=== PATIENT | female | born 1990 | race Caucasian/White ===

== ENCOUNTER → 2022-04-26 09:30 | Outpatient (CLI) | payer OTHER, SELFPAY ==
[2022-04-26 10:33] LABS: Add Manual Diff / Slide Review NO; Basophils Absolute Auto 0 /uL (0-100); Basophils Percent Auto 0.4 % (0-2); Eosinophils Absolute Auto 100 /uL (0-450); Eosinophils Percent Auto 1.1 % (2-4); Hematocrit 41.3 % (36-46); Hemoglobin 14.3 g/dL (12.0-16.0); Lymphocytes Absolute Auto 2500 /uL (1100-4500); Lymphocytes Percent Auto 36.7 % (25-40); Mean Corpuscular HGB Conc 34.6 % (30-36); Mean Corpuscular Hemoglobin 29.5 PG (26-34); Mean Corpuscular Volume 85.3 fL (80-100); Monocytes Absolute Auto 500 /uL (0-900); Monocytes Percent Auto 6.8 % (3-14); Neutrophils Absolute Auto 3700 /uL (1500-7000); Platelet Count 320 X10^3/uL (150-400); Red Blood Cell Count 4.84 X10^6/uL (4.0-5.2); Red Cell Distribution Width 12.7 % (11.6-14.8); White Blood Cell Count 6.8 X10^3/uL (4.5-11.0)
[2022-04-26 10:55] LABS: Appearance Urine UA CLEAR; Bilirubin Urine UA NEGATIVE (NEGATIVE); Color Urine UA YELLOW; Glucose Urine UA NEGATIVE (Negative); Ketones Urine UA NEGATIVE (NEGATIVE); Leukocyte Esterase Urine UA NEGATIVE (NEGATIVE); Nitrite Urine UA NEGATIVE (Negative); Occult Blood Urine UA NEGATIVE (Negative); Protein Urine UA NEGATIVE (Negative); Urobilinogen Urine UA 0.2 E.U./dL (0.2)
[2022-04-27 01:34] LABS: HCG Quantitative /Beta subunit 1588.3 mIU/mL
[2022-04-27 07:25] LABS: RPR Screen Non Reactive (Non Reactive)
[2022-04-28 06:18] LABS: Varicella IgG Antibody <135 index (Immune >165)
[2022-04-29 16:17] LABS: Hepatitis B Surface Antigen NEGATIVE s/c (NEGATIVE); Rubella Antibody IgG 54.2 IU/mL (>15)
[2022-04-29 16:33] LABS: HIV 1 & 2 Ab/Ag 4th Gen Combo NEGATIVE (NEGATIVE); Hep C Virus Ab w/Reflex Quant NEGATIVE s/c (NEGATIVE)
== END ==
PROVIDERS: Referring Provider Obstetrics & Gynecology; Visit Provider Obstetrics & Gynecology
DX: Z34.01 Encounter for supervision of normal first pregnancy, first trimester (principal)
CPT/HCPCS: 36415; 80055; 81003; 84702; 86787; 86803; 86850; 86900; 86901; 87086; 87389

== ENCOUNTER → 2022-05-28 13:59 | Outpatient (CLI) | payer OTHER, SELFPAY ==
--- NOTE | 2022-05-28 14:00 | DI.US.S_ITS ---
PROCEDURE: US OB <= 14 WEEKS FETUS INDICATIONS: DATES OUTSIDE/PRIOR DATING DATA: Last menstrual period (LMP): March 23, 2022. LMP-based estimated date of delivery (JANET): December 28, 2022. First dating scan (date and location): May 28, 2022, [facility]. Estimated date of delivery (JANET) from first dating scan: December 27, 2022. TECHNIQUE: Real-time scanning was performed of the fetus and maternal pelvic organs, with image documentation. Endovaginal scanning was also performed to better visualize the fetus and maternal ovaries. COMPARISON: None. FINDINGS: Embryo: There is a single live intrauterine gestation with a crown-rump length of 2.7 cm for a gestational age of 9 weeks, 4 days. Heart rate: 160 BPM Maternal organs: Ovaries have a normal appearance. There is a right corpus luteal cyst. IMPRESSION: Single live intrauterine gestation with a gestational age of 9 weeks 4 days by crown-rump length. We strive to produce accurate, complete, and clear reports of imaging services. To assist us in improving patient care, this report was composed using standard report templates and voice recognition software. Therefore, it may contain abnormal punctuation, insertions and/or omissions. Occasional wrong-word or sound-alike substitutions may occur. Though we review the report and make efforts to correct it, we do recommend that the report be read carefully in proper context to recognize any text inaccuracies. Dictated by: Sonia Meredith M.D. on 05/28/2022 at 16:15 Approved by: Sonia Meredith M.D. on 05/28/2022 at 16:16
== END ==
PROVIDERS: Referring Provider Obstetrics & Gynecology; Visit Provider Obstetrics & Gynecology
DX: Z34.01 Encounter for supervision of normal first pregnancy, first trimester (principal); Z3A.09 9 weeks gestation of pregnancy
CPT/HCPCS: 76801; 76817

== ENCOUNTER → 2022-06-12 16:54 | Outpatient (CLI) | payer OTHER, SELFPAY ==
[2022-06-12 23:22] LABS: Urine N gonorrhoeae NOT DETECTED
[2022-06-12 23:31] LABS: Urine Chlamydia NOT DETECTED
== END ==
PROVIDERS: Referring Provider Obstetrics & Gynecology; Visit Provider Obstetrics & Gynecology
DX: Z34.01 Encounter for supervision of normal first pregnancy, first trimester (principal); Z3A.11 11 weeks gestation of pregnancy
CPT/HCPCS: 87491; 87591

== ENCOUNTER → 2022-07-12 15:18 | Outpatient (CLI) | payer OTHER, SELFPAY ==
[2022-07-18 20:45] LABS: AFP Value 41.1 ng/mL (.); Gest Age on Col Date 15.9 weeks (.); Insulin Dep Diabetes No (.); OSBR Risk 1IN 4529 (.); Results Report (.); Test Results *Screen Negative* (.)
== END ==
PROVIDERS: Referring Provider Obstetrics & Gynecology; Visit Provider Obstetrics & Gynecology
DX: Z34.01 Encounter for supervision of normal first pregnancy, first trimester (principal); Z3A.15 15 weeks gestation of pregnancy
CPT/HCPCS: 36415; 82105

== ENCOUNTER → 2022-08-12 14:00 | Outpatient (CLI) | payer OTHER, SELFPAY ==
--- NOTE | 2022-08-12 14:02 | DI.US.S_ITS ---
PROCEDURE: US OB >= 14 WEEKS FETUS INDICATIONS: ANATOMY OUTSIDE/PRIOR DATING DATA: Last menstrual period (LMP): 03/23/2022. LMP-based estimated date of delivery (JANET): 12/28/2022. First dating scan (date and location): 05/28/2022. Estimated date of delivery (JANET) from first dating scan: 12/27/2022 The calculations are made using the JANET of 12/27/2022 TECHNIQUE: Real-time scanning was performed of the fetus, with image documentation and biometric measurements. Endovaginal scanning: Not performed COMPARISON: None. FINDINGS: General: A single living intrauterine gestation is present. Presentation: Vertex. Placenta: Placental position is anterior , without previa. Amniotic fluid index: 17.7 cm, normal range is 5-24 cm. Single deepest vertical pocket is 0.9 cm. heart rate: 152 beats per minute. Maternal cervical canal: 3.9 cm long. biometrics: Biparietal diameter: 5.1 cm Head circumference: 18 cm Abdominal circumference: 15 cm Femur length: 3.5 cm Composite gestational age from present scan: 20 weeks 6 days Estimated weight and percentile: 382 g, 69th percentile IMPRESSION: Single living intrauterine gestation with normal OSMEL and normal estimated weight. Size consistent with dates. Dictated by: Damien Luther M.D. on 08/13/2022 at 10:05 Approved by: Damien Luther M.D. on 08/13/2022 at 10:11
== END ==
PROVIDERS: Referring Provider Obstetrics & Gynecology; Visit Provider Obstetrics & Gynecology
DX: Z34.02 Encounter for supervision of normal first pregnancy, second trimester (principal); Z3A.20 20 weeks gestation of pregnancy
CPT/HCPCS: 76811

== ENCOUNTER → 2022-09-26 11:40 | Outpatient (CLI) | payer OTHER, SELFPAY ==
[2022-09-26 13:21] LABS: Hematocrit 33.6 % (36-46); Hemoglobin 11.6 g/dL (12.0-16.0)
[2022-09-26 13:32] LABS: GTT (PREG) 1 Hour PP 50gm Dose 142 mg/dL (76-139)
== END ==
PROVIDERS: Referring Provider Obstetrics & Gynecology; Visit Provider Obstetrics & Gynecology
DX: Z34.02 Encounter for supervision of normal first pregnancy, second trimester (principal); Z3A.26 26 weeks gestation of pregnancy
CPT/HCPCS: 36415; 82950; 85014; 85018

== ENCOUNTER → 2022-10-07 07:40 | Outpatient (CLI) | payer OTHER, SELFPAY ==
[2022-10-07 09:53] LABS: Glucose Fasting Gestational 87 mg/dL (76-95)
[2022-10-07 10:12] LABS: Glucose 1 Hour Gest 156 mg/dL (76-180)
[2022-10-07 11:07] LABS: Glucose Tol Interp,Gestational INTERPRETATION
[2022-10-07 11:21] LABS: Glucose 2 Hour Gest 166 mg/dL (76-155)
[2022-10-07 12:35] LABS: Glucose 3 Hour Gest 132 mg/dL (76-140)
== END ==
PROVIDERS: Referring Provider Obstetrics & Gynecology; Visit Provider Obstetrics & Gynecology
DX: O99.810 Abnormal glucose complicating pregnancy (principal)
CPT/HCPCS: 36415; 82951; 82952

== ENCOUNTER 2022-10-18 15:17 | Outpatient (CLI) | payer OTHER, SELFPAY ==
--- NOTE | 2022-11-11 14:50 | PM.OBTRLD ---
Visit Information Visit Information Date of evaluation: 10/21/22 Primary OB Provider: Bethel Chambers On-call OB Provider: Kaley Kaba Reason for Evaluation: Yes non-stress test non-stress test reason: decreased movement PFSH Medical History GERD (gastroesophageal reflux disease) Surgical History Anesthesia History of esophagogastroduodenoscopy (EGD) History of tonsillectomy (~2004) Family History Father Hypertension Hyperlipidemia Mother Hyperlipidemia Hypertension Grandfather Diabetes mellitus History of heart disease Hyperlipidemia Hypertension Grandmother Hypertension Mental health problem Alzheimer's dementia Grandfather Diabetes mellitus Hypertension Hyperlipidemia Stroke Grandmother Hypertension Stroke Social History marital status: number of children: 0 household members: spouse lives independently: Yes housing: house pets and animals: Yes education level: other occupational status: employed current occupational exposures/hazards: Yes (aware of all terratogens and taking proper precautions) special cary needs: No travel history: over 6 months ago seatbelt use: always water heater temp set < 120 deg: Yes working smoke detector in home: Yes fire extinguisher in home: Yes carbon monox detector in home: Yes firearms in home: Yes firearms unloaded and locked: Yes do you feel safe at home: Yes Smoking Status: Never smoker second hand exposure: No alcohol intake: former substance use type: does not use during the past year weight has: remained stable well-balanced diet: daily or most days daily servings fruits/ve-4 caffeine: Yes Type(s) of exercise: aerobic and bicycling frequency: 3-4 times per week duration: 30-45 minutes/day Evaluation Evaluation Baseline heart rate: 140 Variability: Moderate (11-25) monitor accelerations: Present Monitor Decelerations: Variable Contraction Frequency (minutes): 0 Category of Tracing: Appropriate for gestational age Diagnosis, Plan/Disposition Plan/Disposition Plan: Assessment: 32-year-old 1 para 0 at 30 weeks gestation Decreased movement Nonstress test appropriate for gestational age Plan: kick counts discuss Follow-up as scheduled with Dr. Chambers OB Disposition: home
== END 2022-10-18 16:24 | disposition home or self-care (01) ==
LOC: LABOR 16:24 → OB 10-24 16:09
PROVIDERS: PCP Physician Assistant Medical; Referring Provider Obstetrics & Gynecology; Visit Provider Obstetrics & Gynecology
DX: O36.8130 Decreased fetal movements, third trimester, not applicable or unspecified (principal); Z3A.30 30 weeks gestation of pregnancy
CPT/HCPCS: 59025; G0378; G0379

== ENCOUNTER → 2022-12-10 11:59 | Outpatient (CLI) | payer OTHER, SELFPAY ==
[2022-12-10 13:25] LABS: Strep Grp B PCR NEG for Grp B Strep
== END ==
PROVIDERS: PCP Physician Assistant Medical; Visit Provider Obstetrics & Gynecology
DX: Z34.03 Encounter for supervision of normal first pregnancy, third trimester (principal); Z3A.37 37 weeks gestation of pregnancy
CPT/HCPCS: 87186; 87653

== ENCOUNTER 2022-12-10 12:00 | Inpatient (IN) | payer OTHER, SELFPAY ==
--- NOTE | 2022-12-10 12:06 | P.HPOB_ITS ---
OB HPI Date/Time Date of admission: 12/10/22 Date Patient Seen: 12/10/22 Time Patient Seen: 12:07 History of Present Condition Chief complaint: IUP, 37+3 wks EGA, SROM 0930 12/10/2022 Narrative: Zenobia Vera is a 32 year old female [facility] Medical History GERD (gastroesophageal reflux disease) Surgical History Anesthesia History of esophagogastroduodenoscopy (EGD) History of tonsillectomy (~2004) Family History Father Hypertension Hyperlipidemia Mother Hyperlipidemia Hypertension Grandfather Diabetes mellitus History of heart disease Hyperlipidemia Hypertension Grandmother Hypertension Mental health problem Alzheimer's dementia Grandfather Diabetes mellitus Hypertension Hyperlipidemia Stroke Grandmother Hypertension Stroke Social History marital status: number of children: 0 household members: spouse lives independently: Yes housing: house pets and animals: Yes education level: other occupational status: employed current occupational exposures/hazards: Yes (aware of all terratogens and taking proper precautions) special cary needs: No travel history: over 6 months ago seatbelt use: always water heater temp set < 120 deg: Yes working smoke detector in home: Yes fire extinguisher in home: Yes carbon monox detector in home: Yes firearms in home: Yes firearms unloaded and locked: Yes do you feel safe at home: Yes Smoking Status: Never smoker second hand exposure: No alcohol intake: former substance use type: does not use during the past year weight has: remained stable well-balanced diet: daily or most days daily servings fruits/ve-4 caffeine: Yes Type(s) of exercise: aerobic and bicycling frequency: 3-4 times per week duration: 30-45 minutes/day Meds Home Medications and Allergies Home Medications Medication Instructions Recorded Confirmed Type famotidine 20 mg tablet (Pepcid) 20 mg PO BID 06/06/22 12/10/22 History prenat.vits,olamide,iaw-[id number]-ovfwp 1 tab PO DAILY 06/06/22 12/10/22 History Allergies Allergy/AdvReac Type Severity Reaction Status Date / Time Bactrim Allergy Intermediate Hives Uncoded 12/10/22 11:30 OB Exam Vital signs Blood Pressure: 138/82 Pulse Rate: 77 Temperature: 98.2 F HENMT Head: normal to inspection, normocephalic and atraumatic Eyes General: appearance normal, both eyes and all related structures Resp Effort & Inspection: normal respiratory effort and able to speak in complete sentences Auscultation: clear to auscultation bilaterally Cardio Rate: regular rate Rhythm: regular rhythm Heart Sounds: S1 normal, S2 normal and no murmurs Extremities Lower extremity: Yes normal to inspection GI Inspection: normal to inspection Palpation: Yes soft and Yes no hepatosplenomegaly Uterus Location (Fundal Height): 38 Presentation: vertex Estimated Weight (lbs): 8 Objective Labs 12/10/22 13:25 Assessment and Plan Assessment and Plan Assessment and Plan narrative: ASSESSMENT 1. Intrauterine , 37+3 wks EGA 2. SROM 3. GBS status unknown PLAN 1. Admit for delivery 2. See orders
[2022-12-10 13:00] VITALS: BP 138/82
[2022-12-10] MEDS: PENICILLIN G POTASSIUM 5,000,000 UNIT in DEXTROSE 5% IN WATER 250 ML 250 UNIT IV (13:23)
[2022-12-10] MEDS: LACTATED RINGERS 1,000 ML 100 ML IV ×2 (13:24→15:16)
[2022-12-10 13:52] LABS: Add Manual Diff / Slide Review NO; Basophils Absolute Auto 0 /uL (0-100); Basophils Percent Auto 0.4 % (0-2); Eosinophils Absolute Auto 100 /uL (0-450); Eosinophils Percent Auto 0.5 % (2-4); Hematocrit 40.5 % (36-46); Hemoglobin 14.1 g/dL (12.0-16.0); Lymphocytes Absolute Auto 3100 /uL (1100-4500); Lymphocytes Percent Auto 25.2 % (25-40); Mean Corpuscular HGB Conc 34.7 % (30-36); Mean Corpuscular Hemoglobin 29.9 PG (26-34); Mean Corpuscular Volume 86.1 fL (80-100); Monocytes Absolute Auto 900 /uL (0-900); Monocytes Percent Auto 6.9 % (3-14); Neutrophils Absolute Auto 8300 /uL (1500-7000); Platelet Count 199 X10^3/uL (150-400); Red Cell Distribution Width 13.3 % (11.6-14.8); White Blood Cell Count 12.4 X10^3/uL (4.5-11.0)
[2022-12-10] MEDS: FENT 2MCG/ML BUPIV 0.125% EPI 200 MCG/100 ML PLAST..BAG 8 MCG EPIDURAL ×2 (15:19→22:31)
--- NOTE | 2022-12-10 15:54 | PM.OBPNLAB ---
Date/Time Date Patient Seen: 12/10/22 Time Patient Seen: 15:54 Pain Control Pain control: tolerating well and epidural Pelvic Exam Dilation (cm): 4 Effacement (%): 90 station: -1 Amniotic membrane status: Ruptured Contractions Contractions on admission: irregular Monitor mode: External Contraction pattern: Regular Contraction phase: Resting Status Heart Rate Baseline: 140 Monitor Accelerations: Present Monitor Decelerations: Prolonged (Isolated 5 minute deceleration down to 60's recovered w/ position changes) Monitor Variability: Moderate Assessment and Plan Assessment: active labor Plan: continuous present management Comments: FSE applied. FHR now returned to original baseline, category 1.
[2022-12-10 18:51] VITALS: BP 138/82; PULSE 77; TEMP 36.8
--- NOTE | 2022-12-10 18:57 | PM.OBPNLAB ---
Date/Time Date Patient Seen: 12/10/22 Time Patient Seen: 18:57 Pain Control Pain control: tolerating well and epidural Pelvic Exam Dilation (cm): 6 Effacement (%): 100 station: 0 Amniotic membrane status: Ruptured Contractions Contractions on admission: none Monitor mode: External Contraction pattern: Regular Contraction phase: Resting Contraction intensity: Moderate Status status: Category l Heart Rate Baseline: 155 Monitor Accelerations: Present Monitor Decelerations: Absent Monitor Variability: Moderate Assessment and Plan Assessment: active labor Plan: continuous present management Comments: Anticipate .
--- NOTE | 2022-12-11 00:55 | P.PCNOB_ITS ---
Labor & Delivery Delivery date: 12/11/22 Intrapartal Events: None Cervical ripening method: none Induction method: none Delivery monitor: external FHT and external uterine Route of delivery: Episiotomy description: None L&D Laceration Description: Periurethral - 1st Degree, Perineal - 1st Degree and Labial (Bilateral first degree) Delivery repair: chromic Estimated blood loss (mL): 150 Anesthesia Type: Epidural Complications: None Narrative: Following a brief 2nd stage, the patient delivered spontaneously over an intact perineum a viable female infant. No shoulder dystocia was encountered and there was no cord entanglement. Skin to skin contact was initiated immediately following delivery and delayed cord clamping performed. Once the umbilical cord was doubly clamping cut, a specimen of cord blood was obtained for routine studies. Placenta was easily delivered with gentle cord traction and suprapubic countertraction. Placenta was inspected, found to be intact, and a central cord insertion was noted with 3 vessels in the umbilical cord. IV Pitocin was initiated immediately following delivery of the placenta and bleeding was easily controlled. Inspection of perineum showed super ficial first-degree abrasions in the periurethral and labial area and a first- degree midline perineal laceration which required closure with 2-0 chromic in running interlocking stitches. Hemostasis was easily achieved and both mother and baby tolerated the delivery process well. [place] Baby 1: Infant gender: Female Presentation: vertex Position: Right Occiput Anterior Placenta delivery description: Spontaneous Cord Vessel Description: 3 Vessels score (1 min): 9 score (5 min): 9 weight: 6 lb 8.975 oz Plan for aftercare: Routine care
[2022-12-11] MEDS: IBUPROFEN 600 MG TABLET PO ×3 (03:31→18:15)
[2022-12-11 05:57] LABS: Add Manual Diff / Slide Review NO; Basophils Absolute Auto 100 /uL (0-100); Basophils Percent Auto 0.4 % (0-2); Eosinophils Absolute Auto 0 /uL (0-450); Eosinophils Percent Auto 0.1 % (2-4); Hematocrit 34.1 % (36-46); Hemoglobin 11.7 g/dL (12.0-16.0); Lymphocytes Absolute Auto 2000 /uL (1100-4500); Mean Corpuscular HGB Conc 34.2 % (30-36); Mean Corpuscular Volume 87.7 fL (80-100); Monocytes Absolute Auto 1400 /uL (0-900); Monocytes Percent Auto 7.7 % (3-14); Neutrophils Absolute Auto 14900 /uL (1500-7000); Neutrophils Percent Auto 80.8 % (50-75); Platelet Count 164 X10^3/uL (150-400); Red Blood Cell Count 3.89 X10^6/uL (4.0-5.2); Red Cell Distribution Width 13.7 % (11.6-14.8); White Blood Cell Count 18.5 X10^3/uL (4.5-11.0)
[2022-12-11] MEDS: OXYCODONE IR 5 MG TABLET PO ×3 (09:50→18:14)
[2022-12-11] MEDS: LANOLIN OINT 7 GM 1 APPLIC TOP (13:14)
[2022-12-11] MEDS: DERMOPLAST SPRAY 20% 60 ML 1 SPRAY TOP (13:14)
[2022-12-11] MEDS: ACETAMINOPHEN 325 MG TABLET 650 MG PO (18:16)
[2022-12-12] MEDS: ACETAMINOPHEN 325 MG TABLET 650 MG PO ×2 (00:09→08:59)
[2022-12-12] MEDS: OXYCODONE IR 5 MG TABLET PO ×2 (00:09→08:59)
[2022-12-12] MEDS: IBUPROFEN 600 MG TABLET PO ×2 (00:10→09:00)
--- NOTE | 2022-12-12 08:13 | P.DS_ITS ---
Discharge Providers Provider Date of admission: 12/10/22 12:00 Discharge Date: 12/12/22 Primary care physician: Teja Marti PA-C Consults: 12/10/22 13:03 Consult to Anesthesiology Urgent Comment: Consulting Provider: Bethel Chambers Reason for consultation: SHANIQUE placement in labor Has provider been notified: No 12/12/22 00:53 Consult to Medical Records Field Technician Routine Comment: Discharge provider: Bethel Chambers MD Summary Hospital Course Date Patient Seen: 12/12/22 Time Patient Seen: 08:13 Diagnoses: IUP, 37+4 wks EGA, delivered via spontaneous vaginal GBS positive status Hospital Course: Zenobia presented with spontaneous rupture more membranes on the morning of 12/10/2022 and early on the morning 12/11/2022 delivered spontaneously a viable female Apgars of 9/9 and a weight of 2976 g (6 lb 9 oz). Both mo ther and baby have done well following delivery with the mother experiencing some low back and perineal discomfort. She has had prompt return of bowel and bladder function, she is ambulating independently, tolerating regular diet, and her pain is reasonably well controlled with oral pain medications. She will be discharged at this time to home after counseling regarding precautionary symptoms, limitations activity, medications, plans for follow-up which will be in 6 weeks. Medications at the time of discharge will include continuation of vitamins and Pepcid, oxycodone 5 mg p.o. q.6 hours, dispense 10 tabs, and ibuprofen 600 mg p.o. q.6 hours as needed pain, dispensed 30 tabs, with 2 refills. Peripartum Data Infant Delivery Method: Natural Vaginal Laceration Description: Perineal - 1st Degree and Labial (First-degree, bilateral) Episiotomy description: None Procedures: Continuous lumbar epidural placement Spontaneous vaginal complications: none [place] 1: Gender: Female Disposition of : home Status at Discharge Cognitive/behavioral status at discharge: oriented Overall status at discharge: patient is progressing back to baseline Time Spent with Patient Time attestation: Total time spent providing and/or coordinating discharge services: Objective Labs 12/11/22 05:35 Exam Const General: cooperative and comfortable Nutritional Appearance: average body habitus Orientation: alert and oriented x3 HENMT Head: normal to inspection, atraumatic and abrasion Ears: hearing grossly normal bilaterally Face and sinus: face symmetric Eyes General: appearance normal, both eyes and all related structures Conjunctivae: conjunctivae normal Sclera: sclerae normal EOM: EOM intact bilaterally Neck Neck: normal visual inspection Resp Effort & Inspection: normal respiratory effort and able to speak in complete sentences GI Inspection: normal to inspection Palpation: soft, no hepatosplenomegaly and mass (Firm, minimally tender fundus, U -5) External Female Exam: other (No significant bleeding noted) Extrem General: no calf tenderness Psych Appearance: grossly normal Mental Status: mental status grossly normal Speech and Movement: speech and movement normal Mood: congruent mood Affect: normal affect Attitude: cooperative Thought Process: normal Thought Content: normal Judgment: judgment good Discharge Plan Discharge Plan Patient Disposition: Home Provider Discharge Comment: Please review the written instructions you received when you were discharged from the hospital. Your follow-up visit will be sche duled for 6 weeks after delivery and I look forward to seeing you then. If in the meanwhile however you have concerns, problems, or questions, please contact either through the office phone at [phone], or via the patient portal. Discharge orders & Medications Prescriptions: New ibuprofen 600 mg Tablet 600 mg PO Q6HR PRN (Reason: Pain, Mild (1-3)) Qty: 30 2RF oxycodone 5 mg Tablet 5 mg PO Q6H PRN (Reason: Pain, Moderate (4-6)) Qty: 10 0RF Continued prenat.vits,olamide,owa-rolk-duioa Tablet 1 tab PO DAILY famotidine [Pepcid] 20 mg tablet 20 mg PO BID Follow up/Referrals: Teja Marti PA-C [Primary Care Provider] - Bethel Chambers MD [Physician] - Discharge Health Status Multidrug resistant organism: No MDRO Diet/Activity/Treatments Diet: Diet as Tolerated Activity: As tolerated Other treatments: Wucf-hir-mhgeepd Tylenol may also be used for additional pain relief. Afek-nml-znnatzm stool softeners and/or MiraLax may be used for constipation. Skin/Wound/Dressing Care Report to your healthcare provider any signs of infection, such as:: chills, fever, increased pain, unusual drainage and unusual redness Dressing: N/A Visit Report/Discharge Packet Instructions: DI for Labor and Delivery, Vaginal , DI for and Nipple Soreness, DI for Prescription Opioid Use Stand Alone Forms: Discharge: Care Discharge Data Primary Care Provider: Teja Marti
[2022-12-12 08:50] VITALS: BP 140/85; PULSE 82; RESP 18; TEMP 36.6
[2022-12-12] MEDS: DOCUSATE 100 MG CAPSULE PO (09:00)
== END 2022-12-12 09:50 | disposition home or self-care (01) | DRG 807 ==
PROVIDERS: Admitting Provider Obstetrics & Gynecology; PCP Physician Assistant Medical; Referring Provider Obstetrics & Gynecology; Visit Provider Obstetrics & Gynecology
DX: O42.02 Full-term premature rupture of membranes, onset of labor within 24 hours of rupture (principal); Z37.0 Single live birth; O70.0 First degree perineal laceration during delivery; Z3A.37 37 weeks gestation of pregnancy; O76 Abnormality in fetal heart rate and rhythm complicating labor and delivery; Z34.03 Encounter for supervision of normal first pregnancy, third trimester
CPT/HCPCS: 36415; 59050; 59400; 85025; 86850; 86900; 86901; 87186; 87653; G0379; J2540

== ENCOUNTER → 2023-08-25 16:37 | Outpatient (CLI) | payer OTHER, SELFPAY ==
--- NOTE | 2023-08-25 16:38 | DI.US.S_ITS ---
P 2 ROCEDURE: US OB <= 14 WEEKS FETUS INDICATIONS: Dating and viability OUTSIDE/PRIOR DATING DATA: Last menstrual period (LMP): 06/20/2023. LMP-based estimated date of delivery (JANET): 03/26/2024. First dating scan (date and location): 08/25/2023. Estimated date of delivery (JANET) from first dating scan: 03/29/2024. The calculations are made using the ultrasound JANET of 03/29/2024. TECHNIQUE: Real-time scanning was performed of the fetus and maternal pelvic organs, with image documentation. Endovaginal scanning was also performed to better visualize the fetus and maternal ovaries. COMPARISON: [facility], , OB <= 14 WEEKS FETUS, 05/28/2022, 14:35. FINDINGS: Embryo: Bowler-rump length measures 2.3 cm, 9 weeks 0 days Heart rate: 178 Maternal organs: Ovaries unremarkable. IMPRESSION: Early 1st trimester intrauterine with crown-rump length and heartbeat measuring 9 weeks 0 days We strive to produce accurate, complete, and clear reports of imaging services. To assist us in improving patient care, this report was composed using standard report templates and voice recognition software. Therefore, it may contain abnormal punctuation, insertions and/or omissions. Occasional wrong-word or sound-alike substitutions may occur. Though we review the report and make efforts to correct it, we do recommend that the report be read carefully in proper context to recognize any text inaccuracies. Dictated by: Asael Hugo M.D. on 08/26/2023 at 11:32 Approved by: Asael Hugo M.D. on 08/26/2023 at 11:33
== END ==
PROVIDERS: PCP Physician Assistant Medical; Referring Provider Obstetrics & Gynecology; Visit Provider Obstetrics & Gynecology
DX: Z34.80 Encounter for supervision of other normal pregnancy, unspecified trimester (principal); Z3A.09 9 weeks gestation of pregnancy
CPT/HCPCS: 76801; 76817

== ENCOUNTER → 2023-09-18 14:38 | Outpatient (CLI) | payer OTHER, SELFPAY ==
[2023-09-18 18:49] LABS: Urine N gonorrhoeae NOT DETECTED
[2023-09-18 19:23] LABS: Urine Chlamydia NOT DETECTED
== END ==
PROVIDERS: PCP Physician Assistant Medical; Visit Provider Obstetrics & Gynecology
DX: Z34.81 Encounter for supervision of other normal pregnancy, first trimester (principal); Z3A.12 12 weeks gestation of pregnancy
CPT/HCPCS: 87491; 87591

== ENCOUNTER → 2023-09-18 14:42 | Outpatient (CLI) | payer OTHER, SELFPAY ==
[2023-09-18 16:09] LABS: Add Manual Diff / Slide Review NO; Basophils Absolute Auto 0 /uL (0-100); Basophils Percent Auto 0.3 % (0-2); Eosinophils Absolute Auto 100 /uL (0-450); Eosinophils Percent Auto 1.1 % (2-4); Hematocrit 37.3 % (36-46); Hemoglobin 13.1 g/dL (12.0-16.0); Lymphocytes Absolute Auto 2700 /uL (1100-4500); Lymphocytes Percent Auto 30.8 % (25-40); Mean Corpuscular Volume 85.5 fL (80-100); Monocytes Absolute Auto 700 /uL (0-900); Monocytes Percent Auto 7.4 % (3-14); Neutrophils Absolute Auto 5300 /uL (1500-7000); Neutrophils Percent Auto 60.4 % (50-75); Platelet Count 241 X10^3/uL (150-400); Red Blood Cell Count 4.36 X10^6/uL (4.0-5.2); Red Cell Distribution Width 12.5 % (11.6-14.8); White Blood Cell Count 8.8 X10^3/uL (4.5-11.0)
[2023-09-18 16:18] LABS: Hemoglobin A1C% w Est Avg Glu 5.4 % (4.0-6.0)
[2023-09-18 17:27] LABS: HIV 1 & 2 Ab/Ag 4th Gen Combo NEGATIVE (NEGATIVE); Hep C Virus Ab w/Reflex Quant NEGATIVE s/c (NEGATIVE); Hepatitis B Surface Antigen NEGATIVE s/c (NEGATIVE); Rubella Antibody IgG 46.7 IU/mL (>15)
[2023-09-20 06:25] LABS: RPR Screen Non Reactive (Non Reactive)
[2023-09-20 08:17] LABS: Varicella IgG Antibody <135 index (Immune >165)
== END ==
PROVIDERS: PCP Physician Assistant Medical; Referring Provider Obstetrics & Gynecology; Visit Provider Obstetrics & Gynecology
DX: Z34.81 Encounter for supervision of other normal pregnancy, first trimester (principal); Z3A.12 12 weeks gestation of pregnancy
CPT/HCPCS: 36415; 80055; 83036; 86787; 86803; 86850; 86900; 86901; 87389; 87491; 87591

== ENCOUNTER → 2023-10-17 15:41 | Outpatient (CLI) | payer OTHER, SELFPAY ==
[2023-10-21 21:07] LABS: AFP Value 31.7 ng/mL (.); Insulin Dep Diabetes No (.); OSBR Risk 1IN 10000 (.); Results Report (.); Test Results *Screen Negative* (.)
== END ==
PROVIDERS: PCP Physician Assistant Medical; Referring Provider Obstetrics & Gynecology; Visit Provider Obstetrics & Gynecology
DX: Z34.82 Encounter for supervision of other normal pregnancy, second trimester (principal); Z3A.17 17 weeks gestation of pregnancy
CPT/HCPCS: 36415; 82105

== ENCOUNTER → 2023-11-11 14:01 | Outpatient (CLI) | payer OTHER, SELFPAY ==
--- NOTE | 2023-11-11 14:02 | DI.US.S_ITS ---
PROCEDURE: OB >= 14 WEEKS FETUS INDICATIONS: ANATOMY OUTSIDE/PRIOR DATING DATA: Last menstrual period (LMP): 06/20/2023 LMP-based estimated date of delivery (JANET): 03/26/2024 First dating scan (date and location): 08/25/2023 Estimated date of delivery (JANET) from first dating scan: 03/29/2024 The calculations are made using the clinical JANET of 03/26/2024 TECHNIQUE: Real-time scanning was performed of the fetus, with image documentation and biometric measurements. Endovaginal scanning: Not performed COMPARISON: [facility] OB >= 14 WEEKS FETUS, 08/12/2022, 14:44. [facility] OB <= 14 WEEKS FETUS, 08/25/2023, 16:45. FINDINGS: General: A single living intrauterine gestation is present. Presentation: Variable Placenta: Placental position is anterior. The lower margin of the placenta is approximately 0.2 cm from the inner cervical os. Amniotic fluid index: 11 cm, normal range is 5-24 cm. Single deepest vertical pocket is 4.0 cm. heart rate: 147 beats per minute. Maternal cervical canal: 4.1 cm long. Normal lower limit is 2.5 cm. biometrics: Biparietal diameter: 4.7 cm, 20 weeks 2 days Head circumference: 18.1 cm, 20 weeks 4 days Abdominal circumference: 15.2 cm, 20 weeks 3 days Femur length: 3.4 cm, 20 weeks 4 days Clinically estimated gestational age: 20 weeks 4 days Composite gestational age from present scan: 20 weeks 3 days Estimated weight and percentile: 3257 grams, 40th percentile Anatomic survey: Neuro: Ventricles are non-dilated at less than 10 mm. Cisterna magna is normal at 3-11 mm. Cerebellum is normal in size and morphology. Nuchal skin fold: Normal at less than 6 mm between 14-21 weeks gestational age. Face: Nose and lips, facial profile are normal. Spine: No evidence for spina bifida. Heart: 4-chambered heart is present, with normal ventricular outflow tracts. Diaphragm: Diaphragm is intact. Stomach: Left-sided stomach is present. Kidneys: No hydronephrosis. Normal is less than 5 mm in 2nd trimester, less than 7 mm in 3rd trimester. Cord: 3-vessel cord has orthotopic insertion. Bladder: Normal in size. Extremities: All 4 extremities identified. IMPRESSION: 1. Single live intrauterine with appropriate interval growth. 2. Low lying placenta. Recommend follow-up 3rd trimester ultrasound. 3. anatomic survey is within normal limits. We strive to produce accurate, complete, and clear reports of imaging services. To assist us in improving patient care, this report was composed using standard report templates and voice recognition software. Therefore, it may contain abnormal punctuation, insertions and/or omissions. Occasional wrong-word or sound-alike substitutions may occur. Though we review the report and make efforts to correct it, we do recommend that the report be read carefully in proper context to recognize any text inaccuracies. Approved by: Wesly Yoo M.D. on 11/11/2023 at 21:37
== END ==
PROVIDERS: PCP Physician Assistant Medical; Referring Provider Obstetrics & Gynecology; Visit Provider Obstetrics & Gynecology
DX: O44.42 Low lying placenta NOS or without hemorrhage, second trimester (principal); Z3A.20 20 weeks gestation of pregnancy
CPT/HCPCS: 76811

== ENCOUNTER 2023-11-18 13:46 | Outpatient (CLI) | payer OTHER, SELFPAY ==
--- NOTE | 2023-11-18 14:32 | PM.OBTRLD ---
Visit Information Visit Information Date of evaluation: 11/18/23 Primary OB Provider: Bethel Chambers Comments/Additional reasons for admission: 33yo at 20w4d here with abdominal cramping. She states she had cramping earlier this morning, improved with fluid and rest. No vaginal bleeding. No LOF. [facility] Medical History (Updated 11/18/23 @ 14:34 by Susan Carlos MD) Vaginal delivery (~12/11/22) Abnormal O'Lewis glucose challenge test, antepartum GERD (gastroesophageal reflux disease) Surgical History Anesthesia History of esophagogastroduodenoscopy (EGD) History of tonsillectomy (~2004) Family History (Updated 08/12/23 @ 09:34 by Arelis Wolf RN) Father Hypertension Hyperlipidemia Diabetes mellitus Mother Hyperlipidemia Hypertension Grandfather Diabetes mellitus History of heart disease Hyperlipidemia Hypertension Grandmother Hypertension Mental health problem Alzheimer's dementia Grandfather Diabetes mellitus Hypertension Hyperlipidemia Stroke Grandmother Hypertension Stroke Social History marital status: number of children: 1 household members: spouse lives independently: Yes caregiver/support person: Yes housing: house pets and animals: Yes (dog & cat) 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[employer]) current occupational exposures/hazards: Yes (aware of all terratogens and taking proper precautions) special cary needs: No travel history: recent ([place]) seatbelt use: always water heater temp set < 120 deg: Yes working smoke detector in home: Yes fire extinguisher in home: Yes carbon monox detector in home: Yes firearms in home: Yes firearms unloaded and locked: Yes do you feel safe at home: Yes Smoking Status: Never smoker second hand exposure: No alcohol intake: former (occasionally when not ) substance use type: does not use during the past year weight has: other (son is less than a year old, nearly back to pre-baby) well-balanced diet: daily or most days daily servings fruits/ve-4 caffeine: Yes (2 cups coffee/day) Type(s) of exercise: aerobic and bicycling (stationary bike) frequency: 3-4 times per week duration: 30-45 minutes/day Evaluation Evaluation Baseline heart rate: 130 Diagnosis, Plan/Disposition Final Diagnosis (1) Abdominal cramping: Status: Acute Plan/Disposition Plan: 33yo at 20w4d here with abdominal cramping. Now improved, nearly resolved. FHT 130s. No contractions on monitoring. Pt is hydrating well. Continue with rest/hydration at home. OB Disposition: home
== END 2023-11-18 14:35 | disposition home or self-care (01) ==
LOC: LABOR 14:53 → OB 11-20 16:23
PROVIDERS: PCP Physician Assistant Medical; Referring Provider Family Medicine; Visit Provider Family Medicine
DX: O26.892 Other specified pregnancy related conditions, second trimester (principal); R10.9 Unspecified abdominal pain; Z3A.20 20 weeks gestation of pregnancy
CPT/HCPCS: G0378; G0379

== ENCOUNTER → 2023-12-05 09:53 | Outpatient (CLI) | payer OTHER, SELFPAY ==
[2023-12-05 12:34] LABS: Hemoglobin 11.6 g/dL (12.0-16.0)
[2023-12-05 12:41] LABS: GTT (PREG) 1 Hour PP 50gm Dose 146 mg/dL (76-139)
== END ==
PROVIDERS: PCP Physician Assistant Medical; Referring Provider Obstetrics & Gynecology; Visit Provider Obstetrics & Gynecology
DX: Z34.82 Encounter for supervision of other normal pregnancy, second trimester (principal); Z3A.26 26 weeks gestation of pregnancy
CPT/HCPCS: 36415; 82950; 85014; 85018

== ENCOUNTER → 2023-12-11 07:35 | Outpatient (CLI) | payer OTHER, SELFPAY ==
[2023-12-11 09:15] LABS: Glucose Fasting Gestational 90 mg/dL (76-95)
[2023-12-11 10:21] LABS: Glucose 1 Hour Gest 176 mg/dL (76-180)
[2023-12-11 10:33] LABS: Glucose 2 Hour Gest 162 mg/dL (76-155)
[2023-12-11 10:55] LABS: Glucose Tol Interp,Gestational INTERPRETATION
[2023-12-11 12:22] LABS: Glucose 3 Hour Gest 128 mg/dL (76-140)
== END ==
PROVIDERS: PCP Physician Assistant Medical; Referring Provider Obstetrics & Gynecology; Visit Provider Obstetrics & Gynecology
DX: R73.09 Other abnormal glucose (principal)
CPT/HCPCS: 36415; 82951; 82952

== ENCOUNTER → 2024-01-01 15:57 | Outpatient (CLI) | payer OTHER, SELFPAY | PROVIDERS: PCP Physician Assistant Medical; Visit Provider Obstetrics & Gynecology | DX: R82.998 Other abnormal findings in urine (principal) | CPT/HCPCS: 87086 ==

== ENCOUNTER → 2024-02-12 10:31 | Outpatient (CLI) | payer OTHER, SELFPAY ==
--- NOTE | 2024-02-12 10:32 | DI.US.S_ITS ---
PROCEDURE: US OB FOLLOW UP INDICATIONS: Low lying placenta on 20 wk anatomy scan OUTSIDE/PRIOR DATING DATA: Last menstrual period (LMP): 06/20/2023. LMP-based estimated date of delivery (JANET): 03/26/2024. First dating scan (date and location): 03/29/2024. Estimated date of delivery (JANET) from first dating scan: 03/26/2024. The calculations are made using the or acute JANET of 03/26/2024. TECHNIQUE: Real-time scanning was performed of the fetus, with image documentation and biometric measurements. Endovaginal scanning: Not performed COMPARISON: [facility], , OB >= 14 WEEKS FETUS, 11/11/2023, 14:23. FINDINGS: General: A single living intrauterine gestation is present. Presentation: Vertex. Placenta: Placental position is anterior , without previa. Amniotic fluid index: 6.0 cm, normal range is 5-24 cm. Single deepest vertical pocket is 2.5 cm. heart rate: 143 beats per minute. Maternal cervical canal: Not visualized. biometrics: Not performed Clinically estimated gestational age: 33 weeks 6 days. Other: Not applicable. IMPRESSION: 1. A single living intrauterine gestation redemonstrated. 2. Placenta is anterior. No placenta previa. Cervix is not visualized. Low lying placenta is probably resolved, but precise measurement of the placenta from the internal os cannot be provided. 3. OSMEL 6.0 cm with the deepest pocket of amniotic fluid measuring 2.5 cm. We strive to produce accurate, complete, and clear reports of imaging services. To assist us in improving patient care, this report was composed using standard report templates and voice recognition software. Therefore, it may contain abnormal punctuation, insertions and/or omissions. Occasional wrong-word or sound-alike substitutions may occur. Though we review the report and make efforts to correct it, we do recommend that the report be read carefully in proper context to recognize any text inaccuracies. Dictated by: Kyle Crawford M.D. on 02/12/2024 at 16:48 Approved by: Kyle Crawford M.D. on 02/12/2024 at 16:54
== END ==
LOC: US 10:32
PROVIDERS: PCP Physician Assistant Medical; Referring Provider Obstetrics & Gynecology; Visit Provider Obstetrics & Gynecology
DX: O44.43 Low lying placenta NOS or without hemorrhage, third trimester (principal); Z3A.33 33 weeks gestation of pregnancy
CPT/HCPCS: 76816

== ENCOUNTER 2024-03-01 10:24 | Outpatient (CLI) | payer OTHER, SELFPAY ==
[2024-03-01] MEDS: LACTATED RINGERS 1,000 ML 1000 ML IV (10:55)
[2024-03-01 12:14] LABS: Appearance Urine UA CLEAR; Bilirubin Urine UA NEGATIVE (NEGATIVE); Color Urine UA YELLOW; Glucose Urine UA NEGATIVE (Negative); Ketones Urine UA NEGATIVE (NEGATIVE); Leukocyte Esterase Urine UA TRACE (NEGATIVE); Nitrite Urine UA NEGATIVE (Negative); Occult Blood Urine UA NEGATIVE (Negative); Protein Urine UA NEGATIVE (Negative); Specific Gravity Urine UA <=1.005 (1.000-1.035); Urobilinogen Urine UA 0.2 E.U./dL (0.2)
[2024-03-01 12:15] LABS: pH Urine UA 6.5 (4.5-8.0)
[2024-03-01 12:23] LABS: Bacteria Urine Moderate (10-30); RBC Urine None Seen (0-5/HPF); Squamous Epithelial Cell Urine 5-10 /HPF (0-5/HPF); Urine Volume 10mL (spun); WBC Urine 1-5/HPF (0-5/HPF)
[2024-03-01 12:24] LABS: Culture Indicated Urine Specimen Cultured
== END 2024-03-01 12:05 | disposition home or self-care (01) ==
LOC: LABOR 11:20 → OB 03-03 08:16
PROVIDERS: Obstetrics & Gynecology; PCP Physician Assistant Medical; Referring Provider Obstetrics & Gynecology; Visit Provider Obstetrics & Gynecology
DX: O09.523 Supervision of elderly multigravida, third trimester (principal); Z3A.36 36 weeks gestation of pregnancy
CPT/HCPCS: 59025; 81001; 87086; 96360; G0378; G0379

== ENCOUNTER 2024-03-03 09:31 | Observation (INO) | payer OTHER, SELFPAY ==
[2024-03-03] MEDS: LACTATED RINGERS 1,000 ML 1000 ML IV ×2 (09:59→11:15)
--- NOTE | 2024-03-03 09:59 | P.TNLD_ITS ---
Visit Information Visit Information Date of evaluation: 03/03/24 Primary OB Provider: Bethel Chambers On-call OB Provider: Bethel Chambers Comments/Additional reasons for admission: Zenobia presents to the center for intravenous hydration and evaluation after 4 days of continuous diarrhea. She feels weak and dizzy at times. She has not taken any medication to slow the diarrhea but is trying very hard to keep up with hydration. Her baby remains active and she denies contractions. Vital Signs Vital Signs: See [facility] Medical History (Updated 03/03/24 @ 14:42 by Bethel Chambers MD) Vaginal delivery (~12/11/22) Abnormal O'Lewis glucose challenge test, antepartum GERD (gastroesophageal reflux disease) Surgical History Anesthesia History of esophagogastroduodenoscopy (EGD) History of tonsillectomy (~2004) Family History (Updated 08/12/23 @ 09:34 by Arelis Wolf RN) Father Hypertension Hyperlipidemia Diabetes mellitus Mother Hyperlipidemia Hypertension Grandfather Diabetes mellitus History of heart disease Hyperlipidemia Hypertension Grandmother Hypertension Mental health problem Alzheimer's dementia Grandfather Diabetes mellitus Hypertension Hyperlipidemia Stroke Grandmother Hypertension Stroke Social History marital status: number of children: 1 household members: spouse lives independently: Yes caregiver/support person: Yes housing: house pets and animals: Yes (dog & cat) education level: other occupational status: employed current occupational exposures/hazards: Yes (aware of all terratogens and taking proper precautions) special cary needs: No travel history: recent seatbelt use: always water heater temp set < 120 deg: Yes working smoke detector in home: Yes fire extinguisher in home: Yes carbon monox detector in home: Yes firearms in home: Yes firearms unloaded and locked: Yes do you feel safe at home: Yes Smoking Status: Never smoker second hand exposure: No alcohol intake: former substance use type: does not use during the past year weight has: other well-balanced diet: daily or most days daily servings fruits/ve-4 caffeine: Yes (2 cups coffee/day) Type(s) of exercise: aerobic and bicycling frequency: 3-4 times per week duration: 30-45 minutes/day Review of Systems Review of Systems Narrative: Problem-specific ROS positives included in HPI Exam HENMT Head: normal to inspection, normocephalic and atraumatic Eyes General: appearance normal, both eyes and all related structures Resp Effort & Inspection: normal respiratory effort and able to speak in complete sentences GI Inspection: normal to inspection Palpation: soft and no hepatosplenomegaly Uterus Location (Fundal Height): 36 Presentation: vertex Estimated Weight (lbs): 7 Extrem Right lower extremity: normal to inspection Objective Labs 03/03/24 09:45 03/03/24 09:45 Evaluation Evaluation Baseline heart rate: 135 Variability: Moderate (11-25) monitor accelerations: Present Monitor Decelerations: Absent Diagnosis, Plan/Disposition Final Diagnosis (1) Diarrhea: Status: Acute (2) : Status: Acute Plan/Disposition Plan: IV fluids, 2 L Ringer's lactate administered Labs normal Stool culture and O&P pending Lomotil 2 tabs x1 Patient will continue use of OTC Imodium as needed and will be contacted with results of stool studies when available. OB Disposition: home
[2024-03-03 10:07] LABS: Add Manual Diff / Slide Review NO; Basophils Absolute Auto 0 /uL (0-100); Basophils Percent Auto 0.2 % (0-2); Eosinophils Absolute Auto 100 /uL (0-450); Eosinophils Percent Auto 1.1 % (2-4); Hematocrit 36.1 % (36-46); Hemoglobin 12.2 g/dL (12.0-16.0); Lymphocytes Absolute Auto 1800 /uL (1100-4500); Lymphocytes Percent Auto 31.5 % (25-40); Mean Corpuscular HGB Conc 33.9 % (30-36); Mean Corpuscular Hemoglobin 29.3 PG (26-34); Mean Corpuscular Volume 86.3 fL (80-100); Monocytes Absolute Auto 600 /uL (0-900); Monocytes Percent Auto 11.2 % (3-14); Neutrophils Absolute Auto 3100 /uL (1500-7000); Platelet Count 175 X10^3/uL (150-400); Red Blood Cell Count 4.18 X10^6/uL (4.0-5.2); White Blood Cell Count 5.6 X10^3/uL (4.5-11.0)
[2024-03-03 10:09] LABS: Appearance Urine UA CLEAR; Bilirubin Urine UA NEGATIVE (NEGATIVE); Color Urine UA YELLOW; Glucose Urine UA NEGATIVE (Negative); Ketones Urine UA NEGATIVE (NEGATIVE); Leukocyte Esterase Urine UA NEGATIVE (NEGATIVE); Nitrite Urine UA NEGATIVE (Negative); Occult Blood Urine UA NEGATIVE (Negative); Protein Urine UA NEGATIVE (Negative); Specific Gravity Urine UA <=1.005 (1.000-1.035); Urobilinogen Urine UA 0.2 E.U./dL (0.2)
[2024-03-03 10:16] LABS: Bacteria Urine None Seen; Culture Indicated Urine Cult Not Indicated; RBC Urine None Seen (0-5/HPF); Squamous Epithelial Cell Urine 0-1 /HPF (0-5/HPF); Urine Volume 10mL (spun); WBC Urine None Seen (0-5/HPF)
[2024-03-03 10:19] LABS: Alanine Aminotransferase 13 IU/L (<35); Albumin 3.7 g/dL (3.5-5.0); Albumin Globulin Ratio 1.3 (1.0-2.8); Alkaline Phosphatase 144 U/L (38-126); Aspartate Aminotransferase 24 IU/L (14-36); BUN Creatinine Ratio 8.9 (6-22); Bilirubin Total 0.4 mg/dL (0.2-1.3); Blood Urea Nitrogen 4 mg/dL (7-17); Carbon Dioxide 22 mmol/L (22-32); Chloride 108 mmol/L (98-107); Estimated Glomerular Filt Rate > 60 mL/min (>60); Globulin 2.8 g/dL (1.7-4.1); Glucose 87 mg/dL (70-100); HEMOLYSIS < 15 (0-50); Potassium 3.9 mmol/L (3.4-5.1); Sodium 135 mmol/L (137-145); Total Protein 6.5 g/dL (6.3-8.2)
== END 2024-03-03 12:10 | disposition home or self-care (01) ==
PROVIDERS: Admitting Provider Obstetrics & Gynecology; PCP Physician Assistant Medical; Referring Provider Obstetrics & Gynecology; Visit Provider Obstetrics & Gynecology
DX: O26.893 Other specified pregnancy related conditions, third trimester (principal); R19.7 Diarrhea, unspecified; Z3A.36 36 weeks gestation of pregnancy
CPT/HCPCS: 36415; 59025; 80053; 81001; 85025; 87653; 96360; 96361; G0378; G0379

== ENCOUNTER → 2024-03-03 11:12 | Outpatient (CLI) | payer OTHER, SELFPAY ==
[2024-03-04 07:17] LABS: Strep Grp B PCR NEG for Grp B Strep
== END ==
PROVIDERS: PCP Physician Assistant Medical; Visit Provider Obstetrics & Gynecology
DX: Z34.83 Encounter for supervision of other normal pregnancy, third trimester (principal); Z3A.36 36 weeks gestation of pregnancy
CPT/HCPCS: 87653

== ENCOUNTER 2024-03-25 19:05 | Inpatient (IN) | payer OTHER, SELFPAY ==
--- NOTE | 2024-03-25 19:54 | PM.OBHP.1 ---
OB HPI Date/Time Date of admission: 03/25/24 Date Patient Seen: 03/26/24 Time Patient Seen: 07:30 History of Present Condition Chief complaint: IUP, 39+6, AMA, GBS Negative : 2 Para: 1 Estimated Date of Delivery: 03/26/24 Estimated Gestational Age (weeks): 39+6 Narrative: Zenobia Vera is a 33 year old admitted for cervical ripening/induction due to advanced maternal age. course has been largely uneventful with solid early dating and appropriate milestones throughout. Patient had an elevated 1 hour GDM screen but 3 hour GTT was not diagnostic for GDM. GBS is negative. Indications Indication for induction OB: other (Advanced maternal age) History of Present care: good care Dating criteria: LMP confirmed by 1st trimester US Ultrasounds: normal 1st trimester US and normal mid trimester US Obstetrical complications: none Medical complications: none Preadmission Labs Blood type: A (+) positive -: Antibody screen: negative, GBS status: negative, HBsAG: negative, HIV: negative and RPR/VDLR: negative -: Chlamydia screen: not detected and Gonorrhea screen: not detected -: Rubella: immune and Varicella: not immune HCT: 36.7 HCAB: negative PAP: Normal Cell-free DNA: Low risk male 1 hr GTT: 146 3 hr GTT: 1 hr (176), 2 hr (162) and 3 hr (128) Fasting blood glucose: 90 Prior (ies) History: x1 Evaluation Evaluation Baseline heart rate: 15 Variability: Moderate (11-25) monitor accelerations: Present Monitor Decelerations: Absent Uterine Contraction Intensity: Mild Status: Category l Dilation (cm): 1 Effacement (%): 80 Dilation: 1-2 cm Effacement: >/=80% station: -2 Position of cervix: posterior Consistency: medium Bates score: 6 PFSH Medical History (Updated 03/16/24 @ 10:17 by Jessica Cullen DO) Abnormal O'Lewis glucose challenge test, antepartum Vaginal delivery (~12/11/22) GERD (gastroesophageal reflux disease) Surgical History Anesthesia History of esophagogastroduodenoscopy (EGD) History of tonsillectomy (~2004) Family History (Updated 08/12/23 @ 09:34 by Arelis Wolf RN) Father Hypertension Hyperlipidemia Diabetes mellitus Mother Hyperlipidemia Hypertension Grandfather Diabetes mellitus History of heart disease Hyperlipidemia Hypertension Grandmother Hypertension Mental health problem Alzheimer's dementia Grandfather Diabetes mellitus Hypertension Hyperlipidemia Stroke Grandmother Hypertension Stroke Social History marital status: number of children: 1 household members: spouse lives independently: Yes caregiver/support person: Yes housing: house pets and animals: Yes (dog & cat) education level: other occupational status: employed current occupational exposures/hazards: Yes (aware of all terratogens and taking proper precautions) special cary needs: No travel history: recent seatbelt use: always water heater temp set < 120 deg: Yes working smoke detector in home: Yes fire extinguisher in home: Yes carbon monox detector in home: Yes firearms in home: Yes firearms unloaded and locked: Yes do you feel safe at home: Yes Smoking Status: Never smoker second hand exposure: No alcohol intake: former substance use type: does not use during the past year weight has: other well-balanced diet: daily or most days daily servings fruits/ve-4 caffeine: Yes (2 cups coffee/day) Type(s) of exercise: aerobic and bicycling frequency: 3-4 times per week duration: 30-45 minutes/day Meds Home Medications and Allergies Home Medications Medication Instructions Recorded Confirmed Type famotidine 20 mg tablet (Pepcid) 20 mg PO BID 06/06/22 03/25/24 History prenat.vits,olamide,[id number] 1 tab PO DAILY 06/06/22 03/16/24 History ferrous sulfate 140 mg (45 mg 140 mg PO DAILY 08/12/23 03/16/24 History iron) tablet,extended release Allergies Allergy/AdvReac Type Severity Reaction Status Date / Time sulfamethoxazole Allergy Intermediate Hives Verified 03/16/24 09:54 [From Bactrim] trimethoprim [From Bactrim] Allergy Intermediate Hives Verified 03/16/24 09:54 Review of Systems Review of Systems Narrative: Problem-specific ROS positives included in HPI OB Exam Vital signs Blood Pressure: 132/83 Pulse Rate: 88 Temperature: 96.8 F HENMT Head: normal to inspection, normocephalic and atraumatic Eyes General: appearance normal, both eyes and all related structures Resp Effort & Inspection: normal respiratory effort and able to speak in complete sentences Auscultation: clear to auscultation bilaterally Cardio Rate: regular rate Rhythm: regular rhythm Heart Sounds: S1 normal, S2 normal and no murmurs Extremities Lower extremity: Yes normal to inspection GI Inspection: normal to inspection Palpation: Yes soft and Yes no hepatosplenomegaly Uterus Location (Fundal Height): 38 Estimated Weight (lbs): 8 Objective Labs 03/25/24 20:15 Assessment and Plan Assessment and Plan Assessment and Plan narrative: ASSESSMENT 1. Intrauterine , 39+ 6 weeks gestational age 2. Advanced maternal age 3. GBS negative status PLAN 1. Admit for cervical ripening and delivery 2. See admission orders
[2024-03-25] MEDS: miSOPROStoL 25 MCG TABLET 50 MCG PO (20:33)
[2024-03-25 20:44] LABS: Add Manual Diff / Slide Review NO; Basophils Absolute Auto 0 /uL (0-100); Basophils Percent Auto 0.3 % (0-2); Eosinophils Absolute Auto 100 /uL (0-450); Eosinophils Percent Auto 1.3 % (2-4); Hematocrit 36.7 % (36-46); Hemoglobin 12.6 g/dL (12.0-16.0); Lymphocytes Absolute Auto 2400 /uL (1100-4500); Lymphocytes Percent Auto 26.9 % (25-40); Mean Corpuscular HGB Conc 34.4 % (30-36); Mean Corpuscular Hemoglobin 29.1 PG (26-34); Mean Corpuscular Volume 84.6 fL (80-100); Monocytes Absolute Auto 700 /uL (0-900); Monocytes Percent Auto 7.3 % (3-14); Neutrophils Absolute Auto 5800 /uL (1500-7000); Neutrophils Percent Auto 64.2 % (50-75); Platelet Count 190 X10^3/uL (150-400); Red Blood Cell Count 4.33 X10^6/uL (4.0-5.2); Red Cell Distribution Width 14.3 % (11.6-14.8); White Blood Cell Count 9.1 X10^3/uL (4.5-11.0)
[2024-03-25 20:48] VITALS: BP 132/83
[2024-03-25 23:57] VITALS: TEMP 36
[2024-03-25] MEDS: fentaNYL 100 MCG/2 ML INJ 50 MCG IV (23:57)
[2024-03-26] MEDS: LACTATED RINGERS 1,000 ML 100 ML IV ×3 (01:42→08:04)
--- NOTE | 2024-03-26 02:47 | P.PCN_ITS ---
[facility] <Sabine Denis, DO - Last Filed: 03/29/24 08:43> Pre-procedure Procedure: Continuous Lumbar Epidural for L&D (CSE) Attending OB provider: Bethel Chambers PMKina/LAURA narrative: 33yo female multip in labor requesting epidural. See pre-anesthesia evaluation for further details. ASA Class: II Labs: Hct 36.7 % (36-46) 03/25/24 20:15 Plt Count 190 X10^3/uL (150-400) 03/25/24 20:15 Medications: Current Medications Generic Name Dose Route Start Last Admin Trade Name Freq PRN Reason Stop Dose Admin Calcium Carbonate 1,000 mg 03/25/24 19:44 Calcium Carbonate 500 Mg Tab PO Q4HR PRN Dyspepsia Carboprost Tromethamine 250 mcg 03/25/24 19:40 Carboprost 250 Mcg/Ml Ampul IM Q90M PRN Bleeding Diphenhydramine HCl 25 mg 03/26/24 02:45 Diphenhydramine 50 Mg/Ml Vial IV Q10M PRN Pruritis Ephedrine Sulfate 10 mg 03/26/24 02:45 Ephedrine 50 Mg/Ml Vial IV Q5M PRN Blood pressure decrease more than 20% of baseline. Fentanyl 50 mcg 03/25/24 23:40 03/25/24 23:57 Fentanyl 100 Mcg/2 Ml Inj IV 50 mcg Q1H PRN Administration Pain, Severe (7-10) Oxytocin/Lactated Ringer's 30 unit in 500 mls @ 200 mls/hr 03/25/24 19:40 Oxytocin Premix IV CONT PRN Bleeding Protocol Tranexamic Acid 1,000 mg/ 100 mls @ 200 mls/hr 03/25/24 19:40 Sodium Chloride IV NOW PRN Bleeding Lactated Ringer's 1,000 mls @ 100 mls/hr 03/25/24 19:45 03/26/24 01:42 Lactated Ringers IV 100 mls/hr CONT KRISTINE Administration FENT 2MCG/ML BUPIV 0.125% EPI 200 mcg in 100 mls @ 6 mls/hr 03/26/24 02:45 Fentanyl/Bupiv/Ns 2mcg/Ml - 0.125% EPIDURAL CONT KRISTINE Lidocaine HCl 20 ml 03/25/24 19:40 Lidocaine 1% 20 Ml INJ INTRA-OP PRN Post Delivery Methylergonovine Maleate 0.2 mg 03/25/24 19:40 Methylergonovine 0.2 Mg Tablet PO Q6HR PRN Heavy Bleeding Methylergonovine Maleate 0.2 mg 03/25/24 19:40 Methylergonovine 0.2 Mg/Ml Vial IM NOW PRN Bleeding Misoprostol 800 mcg 03/25/24 19:40 Misoprostol 200 Mcg Tablet NE NOW PRN Bleeding Misoprostol 400 mcg 03/25/24 19:40 Misoprostol 200 Mcg Tablet SL NOW PRN Bleeding Misoprostol 50 mcg 03/25/24 20:00 03/25/24 20:33 Misoprostol 25 Mcg Tablet PO 50 mcg Q6H KRISTINE Administration Nalbuphine HCl 2.5 mg 03/26/24 02:45 Nalbuphine 20 Mg/Ml Ampul IV Q10M PRN Pruritis Naloxone HCl 0.2 mg 03/25/24 19:40 Naloxone 0.4 Mg/Ml Vial IV Q2MIN PRN Opiate Reversal Ondansetron HCl 4 mg 03/25/24 19:44 Ondansetron 4 Mg/2 Ml Inj IV Q4HR PRN Nausea And Vomiting Oxytocin 10 unit 03/25/24 19:40 Oxytocin 10 Unit/Ml Vial IM NOW PRN Bleeding Sodium Chloride 10 ml 03/25/24 21:00 Sodium Chloride 0.9% Flush IV BID KRISTINE Sodium Chloride 10 ml 03/25/24 19:40 Sodium Chloride 0.9% Flush IV PRN PRN Flush Sodium Chloride 10 ml 03/26/24 02:45 Sodium Chloride 0.9% Flush IV BID KRISTINE Sodium Chloride 10 ml 03/26/24 02:45 Sodium Chloride 0.9% Flush IV PRN PRN Flush Zolpidem Tartrate 5 mg 03/25/24 19:44 Zolpidem 5 Mg Tablet PO BEDTIME PRN Sleep Allergies: Allergies Allergy/AdvReac Type Severity Reaction Status Date / Time sulfamethoxazole Allergy Intermediate Hives Verified 03/16/24 09:54 [From Bactrim] trimethoprim [From Bactrim] Allergy Intermediate Hives Verified 03/16/24 09:54 Procedure Insertion date: 03/26/24 Insertion time: 02:24 Prep/Local: 1% lidocaine (Chloraprep) Interspace: L3-4 Patient position: sitting Needle: 18 gauge [employer]tead (27g 5 cm Pencan for intrathecal dose) Loss of resistance with: saline HARSHAD at (cm): 8 Catheter placed at SKIN (cm): 14 Catheter in SPACE (cm): 6 Insertion: Yes CSF, No Blood, No Paresthesia with insertion, No Paresthesia with injection and No Test dose reaction Initial Medications TEST DOSE time: TEST DOSE: 1.5% lidocaine with epinephrine 1:200k (mL): 3 BOLUS DOSE time: BOLUS DOSE (mL): 2 BOLUS DOSE med: other (Lido+epi. Also gave 0.5 ml of 0.75% bupivacaine in dextrose intrathecally at 02:23. ) Infusion INFUSION: 0.125% bupivacaine and with fentanyl 2 mcg/mL Initial rate (mL/hr): 10 Subsequent interventions: Epidural pump started at 02:42. KR 03:02 - Pt has required ephedrine for BP in 90s systolic with some nausea. Requested RN give additional IVF (pt has had about 700 ml so far) and Zofran. Pt is not feeling contractions and is minimally able to move BLE. Decreased epidural pump rate to 8 ml/hr. KR Post-procedure Anesthesia date START: 03/26/24 Anesthesia time START: 02:12 <Luis Daniel Palomo MD - Last Filed: 03/26/24 11:58> Infusion Subsequent interventions: Epidural pump started at 02:42. KR 03:02 - Pt has required ephedrine for BP in 90s systolic with some nausea. Requested RN give additional IVF (pt has had about 700 ml so far) and Zofran. Pt is not feeling contractions and is minimally able to move BLE. Decreased epidural pump rate to 8 ml/hr. KR [id number] - Called to see patient regarding perineal pressure. Nearly complete. Bolus given of 6ml of 0.25% bupivacaine and pump bag replaced and restarted. BC Post-procedure Anesthesia date END: 03/26/24 Anesthesia time END: 08:47
[2024-03-26] MEDS: FENT 2MCG/ML BUPIV 0.125% EPI 200 MCG/100 ML PLAST..BAG 6 MCG EPIDURAL (08:14)
[2024-03-26 09:07] VITALS: BP 132/83; PULSE 88; TEMP 36
--- NOTE | 2024-03-26 09:07 | PM.OBPRVD ---
Events: Other (Advanced maternal age) Labor & Delivery Delivery date: 03/26/24 Cervical ripening method: per misoprostal protocol Induction method: none Delivery monitor: external FHT and external uterine Route of delivery: Episiotomy description: None L&D Laceration Description: Periurethral - 1st Degree Estimated blood loss (mL): 150 Anesthesia Type: Epidural Complications: None Narrative: The patient labored spontaneously after receiving 2 doses of oral Cytotec overnight and descended +2 station with the anterior lip of the cervix becoming edematous. It was reduced and the patient pushed twice vigorously delivering a viable and vigorous male over an intact perineum. A single loose nuchal cord was noted but no shoulder dystocia was encountered. Following delivery of the , skin to skin contact was initiated immediately and delayed cord clamping performed. The umbilical cord was then doubly clamped and cut and a specimen of cord blood was obtained for routine studies. The placenta was then delivered with gentle cord traction and suprapubic countertraction. Intravenous Pitocin was initiated immediately upon delivery of the placenta and blood loss was quickly brought under control. Placenta was inspected and found to be intact with a central three-vessel cord insertion. Inspection of the perineum showed only superficial bilateral periurethral abrasions which were hemostatic and did not require repair. Sponge, instrument, and needle counts were correct at the completion of the delivery process which was well tolerated by both mother and . Baby 1: gender: Male Presentation: vertex Position: Left Occiput Anterior Placenta delivery description: Spontaneous Cord Vessel Description: 3 Vessels score (1 min): 9 score (5 min): 9 weight: 7 lb 7.755 oz Plan for aftercare: Routine care
[2024-03-26] MEDS: OXYTOCIN PREMIX 30 UNIT/500 ML PLAST..BAG 200 UNIT IV (09:16)
[2024-03-26] MEDS: IBUPROFEN 600 MG TABLET PO ×2 (11:52→18:02)
[2024-03-26] MEDS: OXYCODONE IR 5 MG TABLET PO ×4 (11:52→23:30)
[2024-03-26] MEDS: ACETAMINOPHEN 325 MG TABLET 650 MG PO ×2 (15:22→23:30)
[2024-03-27] MEDS: IBUPROFEN 600 MG TABLET PO (02:18)
--- NOTE | 2024-03-27 08:00 | PM.OBDS.1 ---
Discharge Providers Provider Date of admission: 03/25/24 19:05 Discharge Date: 03/27/24 Primary care physician: Teja Marti PA-C Consults: 03/25/24 19:40 Consult to Anesthesiology Urgent Comment: Consulting Provider: Bethel Chambers Reason for consultation: Epidural 03/27/24 11:29 Consult to Net Web Application Developer Routine Comment: Discharge provider: Bethel Chambers MD Summary Hospital Course Date Patient Seen: 03/27/24 Time Patient Seen: 08:00 Diagnoses: Intrauterine gestation, 40+ 0 weeks, delivered by spontaneous vaginal Advanced maternal age GBS negative status Hospital Course: the patient was admitted on the evening of 03/25/2024 for cervical ripening and using oral misoprostol x2 doses, the patient progressed into spontaneous labor and on the morning of 03/26/2024 delivered spontaneously a viable male infant with Apgars of 9/9, weight 3395 g ( 7 lb 7.8 oz). Following delivery both mother and baby have done extremely well with the mother experiencing prompt return of bowel and bladder function, she is ambulating independently, tolerating regular diet, and her pain is well controlled with oral pain medications. She will be discharged this time in an afebrile normotensive condition to home after counseling regarding precautionary symptoms limitations of activity, medications, and plans for follow-up which will be in 6 weeks. Medications at discharge will include resumption of all preadmission medications and she will use [id number] Tylenol and/ or ibuprofen as needed for post delivery discomfort. Peripartum Data Infant Delivery Method: Natural Vaginal Laceration Description: Periurethral - 1st Degree Episiotomy description: None Procedures: Continuous lumbar epidural Spontaneous vaginal delivery complications: none Time Spent with Patient Time attestation: Total time spent providing and/or coordinating discharge services: Objective Labs 03/25/24 20:15 Exam Const General: cooperative and comfortable Nutritional Appearance: average body habitus Orientation: alert and oriented x3 HENMT Head: normal to inspection, atraumatic and abrasion Ears: hearing grossly normal bilaterally Face and sinus: face symmetric Eyes General: appearance normal, both eyes and all related structures Conjunctivae: conjunctivae normal Sclera: sclerae normal EOM: EOM intact bilaterally Neck Neck: normal visual inspection Resp Effort & Inspection: normal respiratory effort and able to speak in complete sentences Auscultation: clear to auscultation bilaterally Cardio Rate: regular rate Rhythm: regular rhythm Heart Sounds: S1 normal, S2 normal and no murmurs GI Inspection: normal to inspection Palpation: soft and no hepatosplenomegaly External Female Exam: other (No significant bleeding noted) Extrem General: no calf tenderness Psych Appearance: grossly normal Mental Status: mental status grossly normal Speech and Movement: speech and movement normal Mood: congruent mood Affect: normal affect Attitude: cooperative Thought Process: normal Thought Content: normal Judgment: judgment good Discharge Plan Discharge Plan Patient Disposition: Home Provider Discharge Comment: Please review the written instructions you received when you were discharged from the hospital. Your follow-up appointment should be scheduled for 6 weeks after your delivery and I look forward to seeing you then. If however in the meanwhile you have any issues, concerns, or questions, please contact me either through the office phone at [phone], or via the patient portal. Discharge orders & Medications Prescriptions: Continued ferrous sulfate 140 mg (45 mg iron) tablet extended release 140 mg PO DAILY prenat.vits,olamide,[id number] Tablet 1 tab PO DAILY famotidine [Pepcid] 20 mg tablet 20 mg PO BID Follow up/Referrals: Bethel Chambers MD [Physician] - (6 week Appt w/ Dr. Chambers: May 07 @ 2:30pm) Discharge Health Status Multidrug resistant organism: No MDRO Diet/Activity/Treatments Diet: Diet as Tolerated Activity: As tolerated Other treatments: [id number] Tylenol and/ or ibuprofen may be used for pain relief. Fcne-uqg-folifyi stool softeners and/or MiraLax may be used as needed for constipation. Skin/Wound/Dressing Care Report to your healthcare provider any signs of infection, such as:: chills, fever, increased pain, unusual drainage and unusual redness Dressing: N/A Visit Report/Discharge Packet Instructions: DI for Labor and Delivery, Vaginal , DI for and Nipple Soreness Discharge Data Primary Care Provider: Teja Marti
[2024-03-27] MEDS: PRENATAL VIT,CALC/IRON/FOLIC 1 TABLET 1 TAB PO (08:21)
[2024-03-27] MEDS: DOCUSATE 100 MG CAPSULE PO (08:21)
[2024-03-27] MEDS: ACETAMINOPHEN 325 MG TABLET 650 MG PO (08:21)
[2024-03-27] MEDS: OXYCODONE IR 5 MG TABLET PO (08:21)
== END 2024-03-27 10:00 | disposition home or self-care (01) | DRG 807 ==
PROVIDERS: Admitting Provider Obstetrics & Gynecology; PCP Physician Assistant Medical; Referring Provider Obstetrics & Gynecology; Visit Provider Obstetrics & Gynecology
DX: O80 Encounter for full-term uncomplicated delivery (principal); Z37.0 Single live birth; Z3A.40 40 weeks gestation of pregnancy
CPT/HCPCS: 36415; 59050; 59200; 59400; 85025; 86850; 86900; 86901; G0379; J2590; J3010

== ENCOUNTER → 2024-12-22 09:47 | Outpatient (CLI) | payer OTHER, SELFPAY ==
[2024-12-22 10:08] LABS: Hematocrit 41.1 % (36-46); Hemoglobin 14.1 g/dL (12.0-16.0); Mean Corpuscular HGB Conc 34.4 % (30-36); Mean Corpuscular Hemoglobin 29.4 PG (26-34); Mean Corpuscular Volume 85.5 fL (80-100); Platelet Count 270 X10^3/uL (150-400); Red Cell Distribution Width 12.7 % (11.6-14.8); White Blood Cell Count 5.9 X10^3/uL (4.5-11.0)
[2024-12-22 10:20] LABS: Hemoglobin A1C% w Est Avg Glu 5.1 % (4.0-6.0)
[2024-12-22 10:48] LABS: Alanine Aminotransferase 16 IU/L (<35); Albumin 4.5 g/dL (3.5-5.0); Albumin Globulin Ratio 1.8 (1.0-2.8); Alkaline Phosphatase 63 U/L (38-126); Aspartate Aminotransferase 23 IU/L (14-36); BUN Creatinine Ratio 12.9 (6-22); Bilirubin Total 0.2 mg/dL (0.2-1.3); Blood Urea Nitrogen 11 mg/dL (7-17); Calcium 9.3 mg/dL (8.4-10.2); Carbon Dioxide 29 mmol/L (22-32); Chloride 104 mmol/L (98-107); Cholesterol 189 mg/dL (140-199); Estimated Glomerular Filt Rate > 60 mL/min (>60); Globulin 2.5 g/dL (1.7-4.1); Glucose 103 mg/dL (70-100); HDL Cholesterol 61 mg/dL (40-60); HEMOLYSIS < 15 (0-50); LDL Cholesterol Calculated 96 mg/dL (<100); Potassium 3.9 mmol/L (3.4-5.1); Sodium 138 mmol/L (137-145); Triglycerides 162 mg/dL (35-150)
[2024-12-22 11:03] LABS: Vitamin D 25 Hydroxy (D3) 25.9 ng/mL (30.0-100.0)
[2024-12-22 11:17] LABS: TSH w/ Reflex to FT4 1.94 uIU/mL (0.47-4.68)
== END ==
PROVIDERS: PCP Family Medicine; Referring Provider Family Medicine; Visit Provider Family Medicine
DX: Z13.220 Encounter for screening for lipoid disorders (principal); Z13.9 Encounter for screening, unspecified; Z13.1 Encounter for screening for diabetes mellitus; Z13.228 Encounter for screening for other metabolic disorders; Z13.21 Encounter for screening for nutritional disorder; E66.9 Obesity, unspecified; R53.83 Other fatigue
CPT/HCPCS: 36415; 80053; 80061; 82306; 83036; 84443; 85027

== ENCOUNTER → 2025-05-11 12:31 | Outpatient (CLI) | payer OTHER, SELFPAY ==
--- NOTE | 2025-05-11 12:33 | DI.RAD.S_ITS ---
PROCEDURE: XR CHEST 2V INDICATIONS: Cough TECHNIQUE: 2 views of the chest were acquired. COMPARISON: None. FINDINGS: Surgical changes and devices: None. Lungs and pleura: Lungs are clear. No pleural effusions or pneumothorax. Mediastinum: Mediastinal contours are normal. Heart size is normal. Bones and chest wall: No suspicious bony abnormalities. Soft tissues appear unremarkable. IMPRESSION: No acute cardiopulmonary abnormality is seen. Dictated by: Petey John M.D. on 05/11/2025 at 18:35 Approved by: Petey John M.D. on 05/11/2025 at 18:36
== END ==
PROVIDERS: PCP Family Medicine; Referring Provider Nurse Practitioner Family; Visit Provider Nurse Practitioner Family
DX: R05.9 Cough, unspecified (principal)
CPT/HCPCS: 71046